=== PATIENT | female | born 1950 | race African-American/Black ===

== ENCOUNTER 2021-12-30 09:11 | Day surgery (SDC) | payer MEDICARE, MEDICAID, SELFPAY ==
[~2021-12-30] VITALS: Ht 157.5 cm; Wt 55.8 kg
[~2021-12-30 09:11] MED LIST: CEFAZOLIN SOD 1 GM in D5W 50 ML IV ONE
[2021-12-30] MEDS ORDERED: PROPOFOL 200MG/ 20ML VIAL (DIPRIVAN) IV ONE (13:22)
[2021-12-30] MEDS ORDERED: NS IRRIG SOLN 1000 ML IR ONE (13:22)
[2021-12-30] MEDS ORDERED: ISOSULFAN BLUE 5 ML VIAL (LYMPHAZURIN) INJ ONE (13:22)
[2021-12-30] MEDS ORDERED: SEVOFLURANE 15 MIN GAS INH ONE (13:22)
[2021-12-30] MEDS ORDERED: SUCCINYLCHOLINE CHLORIDE 20 MG/ML(QUELICIN) IVP ONE (13:22)
[2021-12-30] MEDS ORDERED: fentaNYL CITRATE 250 MCG/5 ML AMP IV ONE (13:22)
[2021-12-30] MEDS ORDERED: ONDANSETRON HCL 4 MG/2 ML VIAL IVP PRN (15:15)
[2021-12-30] MEDS ORDERED: HYDROmorphone 1 MG/ML INJ. CARTRIDGE IVP PRN (15:15)
[2021-12-30] MEDS ORDERED: KETOROLAC TROMETHAMINE 30 MG VIAL IVP PRN (15:15)
[2021-12-30] MEDS ORDERED: ONDANSETRON HCL 4 MG/2 ML VIAL ONE (16:50)
[2021-12-30] MEDS ORDERED: KETOROLAC TROMETHAMINE 30 MG VIAL ONE (16:50)
[2021-12-30 17:50] VITALS: BP_SYST 146
[2021-12-30 17:50] LABS: HEMATOCRIT 26.4 % (36-48); HEMOGLOBIN 8.8 g/dL (12.0-16.0)
[2021-12-30] MEDS ORDERED: NALOXONE HCL 0.4 MG/ML AMP (NARCAN) IVP PRN (18:00)
[2021-12-30] MEDS ORDERED: MORPHINE 4 MG INJ. 4 MG/ML VIAL IVP PRN (18:00)
[2021-12-30] MEDS ORDERED: ONDANSETRON HCL 4 MG/2 ML VIAL IM PRN (18:00)
[2021-12-30] MEDS: ACETAMINOPHEN/CODEINE 300 MG-30 MG TABLET PO PRN (21:05)
[2021-12-31] VITALS: BP_SYST 125
[2021-12-31 00:13] VITALS: BP_SYST 147
[2021-12-31 08:00] VITALS: BP_SYST 120
[2021-12-31] MEDS: ACETAMINOPHEN/CODEINE 300 MG-30 MG TABLET PO PRN (09:00)
[2021-12-31 12:44] VITALS: BP_SYST 120
[2021-12-31 15:30] VITALS: BP_SYST 125
== END 2021-12-31 16:46 | disposition home or self-care (01) ==
LOC: SMU 09:11 → SDS 09:11 → EDBD 12:30 → SMU 17:10 → SDS 12-31 16:46
PROVIDERS: ATTEND Surgery
DX: C50.511 Malignant neoplasm of lower-outer quadrant of right female breast (principal); R71.0 Precipitous drop in hematocrit; I10 Essential (primary) hypertension; Z79.899 Other long term (current) drug therapy; Z20.822 Contact with and (suspected) exposure to COVID-19
CPT/HCPCS: 19302; 36415 ×2; 78195; 85018; 87426; 88305; 88307; 88309; A9541; J0330; J0690; J1885; J2270; J2405; J2704; J3010; J7060; Q9968; 88341; 88342